=== PATIENT | male | born 2000 | race Caucasian/White ===

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

== ENCOUNTER 2023-02-12 22:55 | Emergency (ER) | payer SELFPAY | END 2023-02-13 00:01 | disposition home or self-care (01) | LOC: JD.ED 22:55 | DX: S00.531A Contusion of lip, initial encounter (principal); F17.210 Nicotine dependence, cigarettes, uncomplicated; Z88.8 Allergy status to other drugs, medicaments and biological substances; Y04.0XXA Assault by unarmed brawl or fight, initial encounter | CPT/HCPCS: 99282; 99283 ==

== ENCOUNTER 2024-05-23 00:53 | Emergency (ER) | payer MEDICAID | END 2024-05-23 01:12 | LOC: JD.ED 00:53 | DX: Z02.89 Encounter for other administrative examinations (principal); F10.10 Alcohol abuse, uncomplicated; Z88.8 Allergy status to other drugs, medicaments and biological substances; Y90.9 Presence of alcohol in blood, level not specified | CPT/HCPCS: 99283 ==

== ENCOUNTER 2024-08-28 22:47 | Emergency (ER) | payer MEDICAID ==
[2024-08-29] MEDS: Diphtheria,Pertussis(Acell),Tetanus Vaccine 0.5 ML Syringe IM ONE (00:38)
== END 2024-08-29 03:10 | disposition home or self-care (01) ==
LOC: JD.ED 22:47
DX: S62.512A Displaced fracture of proximal phalanx of left thumb, initial encounter for closed fracture (principal); F17.210 Nicotine dependence, cigarettes, uncomplicated; Z23 Encounter for immunization; Z91.048 Other nonmedicinal substance allergy status; W23.1XXA Caught, crushed, jammed, or pinched between stationary objects, initial encounter; Y93.89 Activity, other specified
CPT/HCPCS: 73090-26-RT; 73090-RT; 73130-26-LT; 73130-LT; 90471; 99283; 99283-25